=== PATIENT | male | born 1995 | race African-American/Black ===

== ENCOUNTER 2020-09-08 17:28 | Emergency (ER) | payer MEDICAID ==
[~2020-09-08] VITALS: Ht 180.3 cm; Wt 144.0 kg
[2020-09-08] MEDS ORDERED: ACETAMINOPHEN 500 MG TABLET ONE (18:14)
[2020-09-08] MEDS ORDERED: KETOROLAC 30 MG/1 ML ONE (18:14)
[2020-09-08] MEDS ORDERED: KETOROLAC 30 MG/1 ML IM ONE (18:30)
[2020-09-08] MEDS ORDERED: ACETAMINOPHEN 500 MG TABLET PO ONE (18:30)
[2020-09-08 19:29] VITALS: BP 128/72
== END 2020-09-08 19:37 | disposition home or self-care (01) ==
LOC: ED 18:45
DX: S93.401A Sprain of unspecified ligament of right ankle, initial encounter (principal); X58.XXXA Exposure to other specified factors, initial encounter; Y93.89 Activity, other specified; Y92.89 Other specified places as the place of occurrence of the external cause; Y99.8 Other external cause status
CPT/HCPCS: 29515; 73610; 73630; 96372; 99284; J1885